=== PATIENT | male | born 1945 | race Caucasian/White ===

== ENCOUNTER → 2024-10-04 | Outpatient (CLI) | payer OTHER, SELFPAY ==
[2024-10-04 09:08] LABS: Collection Type, Urine Clean Catch
[2024-10-04 09:31] LABS: Basophils # (Auto) 0.1 Thou/mm3 (0.0-0.2); Basophils % (Auto) 1 % (0-2.5); Eosinophils # (Auto) 0.2 Thou/mm3 (0.0-0.5); Eosinophils % (Auto) 3 % (0-10); Hematocrit 39.1 % (41.0-53.0); Hemoglobin 12.4 g/dL (13.5-16.0); Immature Granulocytes % (Auto) 0 % (0-0); Immature Granulocytes Auto 0.01 Thou/mm3 (0.00-0.00); Lymphocytes # (Auto) 1.9 Thou/mm3 (1.0-4.8); Lymphocytes % (Auto) 29 % (10-50); Mean Corpuscular HGB Conc 31.7 g/dl (31.0-37.0); Mean Corpuscular Hemoglobin 25.7 pg (25.0-35.0); Mean Corpuscular Volume 81 fL (80-100); Monocytes # (Auto) 0.6 Thou/mm3 (0.0-0.8); Monocytes % (Auto) 8 % (0-12); Neutrophils % (Auto) 59 % (37-80); Nucleated Red Blood Cell % 0 /100 WBC (0); Platelet Count 148 Thou/mm3 (140-440); RDW Standard Deviation 45.3 fL (35.1-43.9); Red Blood Count 4.83 Miln/mm3 (4.50-5.90); White Blood Count 6.7 Thou/mm3 (3.8-10.6)
[2024-10-04 09:35] LABS: Bilirubin,Urine Negative (Negative); Blood,Urine Negative (Negative); Clarity,Urine Clear (Clear/Hazy); Color,Urine Yellow (Lt Yel-Yel); Creatinine,Random Urine 170 mg/dL (30-125); Glucose, Urine Negative (Negative); Ketones,Urine Negative (Negative); Leukocyte Esterase,Urine Negative (Negative); Nitrite,Urine Negative (Negative); Protein,Urine Trace (Neg - Trace); RBC,Urine 5 /hpf (0-3); Specific Gravity,Urine 1.032 (1.001-1.035); Squamous Epithelial Cell,Urine 1 /hpf (0-5); WBC,Urine 4 /hpf (0-5)
[2024-10-04 09:42] LABS: Alanine Aminotransferase 24 U/L (10-49); Albumin, Serum 3.8 gm/dL (3.4-4.8); Albumin/Globulin Ratio 1.8 (1.2-2.2); Alkaline Phosphatase 73 U/L (46-116); Anion Gap 8 (7-16); Aspartate Amino Transferase 22 U/L (0-34); BUN/Creatinine Ratio 21 Ratio (12-20); Bilirubin,Total 1.1 mg/dL (0.3-1.2); Blood Urea Nitrogen 15 mg/dL (9-23); Calcium 8.6 mg/dL (8.3-10.6); Calcium (Corrected) 8.8 mg/dL (8.5-10.1); Cardiac Risk Estimate 2.1 RATIO (4.0-6.7); Chloride 108 mMol/L (98-107); Cholesterol 107 mg/dL (132-200); Creatinine (Component) 0.7 mg/dL (0.6-1.3); Globulin 2.1 gm/dL (2.3-3.5); Glucose 120 mg/dL (74-106); HDL Cholesterol 52 mg/dL (40-60); LDL Cholesterol,Calculated 38 mg/dL (0-130); Osmolality,Calculated 288 (275-295); Potassium 4.2 mMol/L (3.4-5.1); Sodium 144 mMol/L (136-145); Total Protein 5.9 gm/dL (5.7-8.2); Triglycerides 86 mg/dL (30-150); eGFR > 60 See Note
[2024-10-04 11:19] LABS: Glucose Estimated Average 148 mg/dL (80-131); Hemoglobin A1C 6.8 % Hgb (4.8-6.0)
== END | disposition home or self-care (01) ==
LOC: COPL 08:11
PROVIDERS: PCP Nurse Practitioner Family; Referring Provider Nurse Practitioner Family; Visit Provider Nurse Practitioner Family
DX: E11.65 Type 2 diabetes mellitus with hyperglycemia (principal); E78.2 Mixed hyperlipidemia; I10 Essential (primary) hypertension; Z79.899 Other long term (current) drug therapy
CPT/HCPCS: 36415; 80053; 80061; 81001; 82570; 83036; 85025

== ENCOUNTER → 2024-12-17 | Outpatient (BNVA) | payer OTHER, SELFPAY | END | disposition home or self-care (01) | PROVIDERS: PCP Nurse Practitioner Family; Referring Provider Nurse Practitioner Family; Visit Provider Urology | DX: N40.1 Benign prostatic hyperplasia with lower urinary tract symptoms (principal); N13.8 Other obstructive and reflux uropathy; N52.9 Male erectile dysfunction, unspecified; Z80.42 Family history of malignant neoplasm of prostate; I10 Essential (primary) hypertension; E11.9 Type 2 diabetes mellitus without complications; I25.10 Atherosclerotic heart disease of native coronary artery without angina pectoris; E66.9 Obesity, unspecified; Z68.38 Body mass index [BMI] 38.0-38.9, adult; Z98.84 Bariatric surgery status; Z87.891 Personal history of nicotine dependence | CPT/HCPCS: 81003; 99212; G0463 ==

== ENCOUNTER → 2024-12-17 | Outpatient (CLI) | payer OTHER, SELFPAY ==
[2024-12-17 11:33] LABS: Prostate Specific Antigen 1.15 ng/mL (0-4.00)
== END | disposition home or self-care (01) ==
LOC: COPL 10:39
PROVIDERS: PCP Family Medicine; Referring Provider Urology; Visit Provider Urology
DX: Z12.5 Encounter for screening for malignant neoplasm of prostate (principal)
CPT/HCPCS: 36415; 84153

== ENCOUNTER → 2024-12-27 | Outpatient (CLI) | payer OTHER, SELFPAY ==
[2024-12-27 14:06] LABS: Collection Type, Urine Clean Catch
[2024-12-27 14:48] LABS: Basophils # (Auto) 0.1 Thou/mm3 (0.0-0.2); Basophils % (Auto) 1 % (0-2.5); Eosinophils # (Auto) 0.1 Thou/mm3 (0.0-0.5); Eosinophils % (Auto) 2 % (0-10); Hematocrit 39.2 % (41.0-53.0); Hemoglobin 13.3 g/dL (13.5-16.0); Immature Granulocytes % (Auto) 0 % (0-0); Immature Granulocytes Auto 0.03 Thou/mm3 (0.00-0.00); Lymphocytes # (Auto) 2.3 Thou/mm3 (1.0-4.8); Lymphocytes % (Auto) 27 % (10-50); Mean Corpuscular HGB Conc 33.9 g/dl (31.0-37.0); Mean Corpuscular Hemoglobin 28.1 pg (25.0-35.0); Mean Corpuscular Volume 83 fL (80-100); Monocytes # (Auto) 0.7 Thou/mm3 (0.0-0.8); Monocytes % (Auto) 9 % (0-12); Neutrophils # (Auto) 5.1 Thou/mm3 (1.8-7.7); Neutrophils % (Auto) 61 % (37-80); Nucleated Red Blood Cell % 0 /100 WBC (0); Platelet Count 172 Thou/mm3 (140-440); RDW Standard Deviation 48.9 fL (35.1-43.9); Red Blood Count 4.73 Miln/mm3 (4.50-5.90); White Blood Count 8.3 Thou/mm3 (3.8-10.6)
[2024-12-27 14:58] LABS: Glucose Estimated Average 143 mg/dL (80-131); Hemoglobin A1C 6.6 % Hgb (4.8-6.0)
[2024-12-27 15:04] LABS: Alanine Aminotransferase 19 U/L (10-49); Albumin, Serum 4.4 gm/dL (3.4-4.8); Alkaline Phosphatase 76 U/L (46-116); Anion Gap 10 (7-16); Aspartate Amino Transferase 23 U/L (0-34); BUN/Creatinine Ratio 27 Ratio (12-20); Bilirubin,Direct 0.4 mg/dL (0.0-0.3); Bilirubin,Total 1.1 mg/dL (0.3-1.2); Blood Urea Nitrogen 27 mg/dL (9-23); Calcium 9.2 mg/dL (8.3-10.6); Cardiac Risk Estimate 2.3 RATIO (4.0-6.7); Chloride 103 mMol/L (98-107); Cholesterol 117 mg/dL (132-200); Glucose 108 mg/dL (74-106); HDL Cholesterol 50 mg/dL (40-60); LDL Cholesterol,Calculated 43 mg/dL (0-130); Osmolality,Calculated 289 (275-295); Potassium 4.2 mMol/L (3.4-5.1); Sodium 142 mMol/L (136-145); Total Protein 6.7 gm/dL (5.7-8.2); Triglycerides 118 mg/dL (30-150); eGFR > 60 See Note
[2024-12-27 15:08] LABS: INR 1.1 (0.9-1.3); Partial Thromboplastin Time 26.7 Seconds (22.0-36.0); Prothrombin Time 11.6 Seconds (9.0-12.2)
[2024-12-27 16:21] LABS: Bilirubin,Urine Negative (Negative); Blood,Urine Negative (Negative); Clarity,Urine Clear (Clear/Hazy); Color,Urine Lt-Yellow (Lt Yel-Yel); Culture Indicated,Urine Not Indicated; Glucose, Urine Negative (Negative); Ketones,Urine Negative (Negative); Leukocyte Esterase,Urine Negative (Negative); Nitrite,Urine Negative (Negative); PH,Urine 5.5 (5.0-7.0); Protein,Urine Negative (Neg - Trace); RBC,Urine 2 /hpf (0-3); Specific Gravity,Urine 1.021 (1.001-1.035); Squamous Epithelial Cell,Urine < 1 /hpf (0-5); Urobilinogen,Urine Negative mg/dL (0.0-1.0); WBC,Urine 1 /hpf (0-5)
== END | disposition home or self-care (01) ==
LOC: COPL 13:41
PROVIDERS: PCP Nurse Practitioner Family; Referring Provider Nurse Practitioner Family; Visit Provider Nurse Practitioner Family
DX: I50.9 Heart failure, unspecified (principal); R06.09 Other forms of dyspnea; E11.65 Type 2 diabetes mellitus with hyperglycemia; Z79.899 Other long term (current) drug therapy; Z79.01 Long term (current) use of anticoagulants
CPT/HCPCS: 36415; 80048; 80061; 80076; 81001; 83036; 85025; 85610; 85730

== ENCOUNTER → 2025-02-03 | Outpatient (BNVA) | payer OTHER, SELFPAY | END | disposition home or self-care (01) | PROVIDERS: PCP Nurse Practitioner Family; Referring Provider Nurse Practitioner Family; Visit Provider Urology | DX: N40.1 Benign prostatic hyperplasia with lower urinary tract symptoms (principal); R39.12 Poor urinary stream; I10 Essential (primary) hypertension; E78.00 Pure hypercholesterolemia, unspecified; I25.10 Atherosclerotic heart disease of native coronary artery without angina pectoris; J44.9 Chronic obstructive pulmonary disease, unspecified; G47.30 Sleep apnea, unspecified; E11.9 Type 2 diabetes mellitus without complications; E66.9 Obesity, unspecified | CPT/HCPCS: 51741; 51798 ==

== ENCOUNTER 2025-06-01 10:04 | Emergency (ER) | payer OTHER, SELFPAY ==
[2025-06-01 10:31] VITALS: BP 104/68; PULSE 88; RESP 18; TEMP 36.8; O2SAT 95; BMI 37.3
--- NOTE | 2025-06-01 10:37 | XR_ITS ---
Shoulder bilateral, 6 views Technique: Shoulder AP internal rotation, AP external rotation, Y view each shoulder total 6 views Exam date and time : June 01, 2025, 1141 hours INDICATIONS: Patient fell 3 weeks ago with injury of both shoulders, bilateral shoulder pain. FINDINGS: No right or left shoulder fracture or dislocation Advanced osteoarthritis left glenohumeral joint No AC joint separation IMPRESSION: No shoulder fractures or dislocations
--- NOTE | 2025-06-01 10:37 | XR_ITS ---
Examination: CT cervical spine without contrast 2-D sagittal reconstructions 2-D coronal reconstructions 3-D reconstructions. Exam date and time: June 01, 2025, 10:48 a.m., comparison June 17, 2022 INDICATIONS: Patient fell 3 weeks ago with injury to the neck, neck pain CTDI:vol (mGy) 20.1 DLP: (mGycm) 468 Technique: Multiple 2 mm axial sections of the cervical spine have been obtained. The coronal and sagittal reconstructions have been obtained. 3-D reconstructions have been obtained. Low dose protocols were performed. One or more of the following dose reduction techniques were used; automated exposure control, adjustment of the mA and/or KV according to patient size, use of iterative reconstruction technique. Findings: Axial sections demonstrate intact base of the skull. C1 exhibit satisfactory relationship to the odontoid. No acute cervical vertebral body fracture seen. Alignment posterior spinous processes satisfactory. Moderate degenerative disc disease C3-C4, C4-C5, C5-C6 Impression: No acute cervical fracture.
--- NOTE | 2025-06-01 10:37 | XR_ITS ---
Examination: CT pelvis without intravenous contrast. 2-D sagittal and coronal reconstructions. Date and time of exam: June 01, 2025, 10:48 a.m. INDICATIONS: Patient fell 3 weeks ago with injury to the pelvis, pelvic pain CTDI: vol (mGy) : 11.2 DLP: (mGycm) : 454 Technique: Multiple 3 mm axial sections of the pelvis have been obtained with the 64 slice high resolution scanner. 2-D sagittal and coronal reconstructions. Low dose protocols were performed. One or more of the following dose reduction techniques were used; automated exposure control, adjustment of the mA and/or KV according to patient size, use of iterative reconstruction technique. Findings: No bowel obstruction No pelvic hematoma Normal seminal vesicles Urinary bladder intact Mild prostatomegaly Severe osteopenia Abundant stool in the rectum Sacral segments iliac bones and acetabular regions intact Anterior rami intact No hip fractures Moderate bilateral hip osteoarthritis No compression L4-L5 Moderate disc narrowing posteriorly L5-S1 Satisfactory alignment sacral and coccygeal segments IMPRESSION: No acute pelvic fracture
--- NOTE | 2025-06-01 13:58 | PD.EDFALL ---
ED Fall Injury RME/HPI General Chief Complaint: Extremity Injury, Upper Stated Complaint: SORENESS IN SHOULDERS/HIPS, FALLING Time Seen by Provider: 06/01/25 10:35 Arrival date/time: 06/01/25 10:04 79-year-old male presents to the emergency department today stating he had a ground-level fall a couple of weeks ago since that has been having pain in his right shoulder hips and neck Limitations: no limitations Related Data Home Medications ?Medication ?Instructions ?Recorded ?Confirmed aspirin 81 mg chewable tablet 81 mg PO DAILY ##0 01/24/10 02/03/25 furosemide 40 mg tablet 20 mg PO DAILY ##0 01/24/10 02/03/25 gabapentin 600 mg tablet 600 mg PO BID ##0 12/04/12 02/03/25 (Neurontin) clopidogrel 75 mg tablet 75 mg PO QDAY 04/26/21 02/03/25 escitalopram oxalate 10 mg tablet 10 mg PO QDAY 04/26/21 02/03/25 spironolactone 25 mg tablet 25 mg PO QDAY 04/26/21 02/03/25 lovastatin 10 mg tablet 10 mg PO QDAY 12/18/21 02/03/25 calcium 250 mg (as 1 tab PO DAILY 07/23/22 02/03/25 citrate)-vitamin D3 5 mcg (200 unit) tablet (Citracal Regular) carvedilol 12.5 mg tablet 12.5 mg PO BID 07/23/22 02/03/25 mecobalamin (vitamin B12) 1,000 2,500 mcg PO QDAY 07/23/22 02/03/25 mcg chewable tablet (B12 Active) ulscczyb-dg-fypla 300 mcg-K 60 1 tab PO QDAY 07/23/22 02/03/25 mcg-lycop 600 mcg-lutein 300 mcg tablet (Centrum Silver Men) celecoxib 200 mg capsule (Celebrex) 200 mg PO .prn 12/18/23 02/03/25 fexofenadine 180 mg tablet 180 mg PO Q24H 12/18/23 02/03/25 (Sanjuanita Hives) lisinopril 5 mg tablet 5 mg PO QDAY 12/18/23 02/03/25 Previous Rx's ?Medication ?Instructions ?Recorded acetaminophen 300 mg-codeine 30 mg 1 tab PO Q4H PRN pain #30 tabs 07/25/22 tablet cephalexin 500 mg capsule 500 mg PO BID #3 caps 07/25/22 Allergies Allergy/AdvReac Type Severity Reaction Status Date / Time acetaminophen (From Vicodin) Allergy Severe Vomiting/DI Verified 06/01/25 10:09 ARRHEA hydrocodone AdvReac Unknown VOMITING/DI Verified 06/01/25 10:09 ARRHEA Review of Systems Review of Systems Systems Reviewed: All systems reviewed, normal except as documented Constitutional Constitutional: Reports system reviewed and no additional complaints, except as documented, Denies fever(s) and Denies headache(s) Eyes Eyes: Reports system reviewed and no additional complaints, except as documented and Denies blurry vision ENT Ears, Nose, Mouth, and Throat: Reports system reviewed and no additional complaints, except as documented, Denies headache(s), Denies nasal congestion, Denies nasal discharge and Reports neck pain Cardiovascular Cardiovascular: Reports system reviewed and no additional complaints, except as documented, Denies chest pain and Denies dyspnea Respiratory Respiratory: Reports system reviewed and no additional complaints, except as documented, Denies chest congestion, Denies cough and Denies dyspnea Gastrointestinal Gastrointestinal: Reports system reviewed and no additional complaints, except as documented and Denies abdominal pain Musculoskeletal Musculoskeletal: Reports system reviewed and no additional complaints, except as documented, Reports arthralgias (Shoulder pain right), Denies back pain, Reports neck pain, Denies numbness, Reports stiffness and Denies tingling Integumentary/Breasts Skin/Breast: Reports system reviewed and no additional complaints, except as documented and Denies rash Neurologic Neurologic: Reports system reviewed and no additional complaints, except as documented, Reports as per HPI, Denies headache(s), Denies numbness and Denies tingling Past Medical History Past Medical History NEUROLOGIC: Positive Neurological Disorders; Negative Cerebrovascular Accident, Transient Ischemic Attacks (TIA), Dementia, Alzheimer's Disease, Parkinson's Disease, Brain Tumor, Meningitis, Seizures, Epilepsy, Multiple Sclerosis, Cerebral Palsy, Amyotrophic Lateral Sclerosis (ALS/Siena Gehrig's), Guillain-[place] Syndrome, Spina Bifida, Paralysis, Peripheral Neuropathy, Garsia's Palsy, Subdural Hematoma, Migraine, Head Trauma, Spinal Cord Injury or Traumatic Brain Injury CARDIAC: Positive Cardiac Disorders, Myocardial Infarction (07/07/2005 in [place]), Coronary Artery Disease (4 stents from [id number] in [facility] dr johnson, [facility] with dr soto), Peripheral Vascular Disease, Hypercholesterolemia, Congestive Heart Failure and Hypertension; Negative Cardiac Arrhythmia, Atrial Fibrillation, Angina, Heart Murmur, Atherosclerotic Heart Disease, Aneurysm, Congenital Heart Disease, Valvular Heart Disease, Rheumatic Fever, Cardiomyopathy, Edema, Pericarditis, Cellulitis, Deep Vein Thrombosis, Hypotension or Varicose Veins RESPIRATORY: Positive Chronic Obstructive Pulmonary Disease (COPD) and Sleep Apnea (cpap at home, no oxygen needed.); Negative Asthma, Bronchitis, Emphysema, Pneumonia, Pulmonary Fibrosis, Cystic Fibrosis, Tuberculosis, Pulmonary Embolism or Pulmonary Edema GASTROINTESTINAL: Positive Gastrointestinal Disorders and Obesity; Negative Hepatitis, Cirrhosis, Pancreatitis, Celiac Disease, Gall Bladder Disease, Gastrointestinal Bleed, Esophageal Varices, Frank's Esophagus, Colitis, Ulcerative Colitis, Diverticulitis, Diverticulosis, Ulcer, Colorectal Cancer, Irritable Bowel, Crohn's Disease, Obstructive Bowel, Hiatal Hernia, Hemorrhoids or Gastroesophageal Reflux Disease GENITOURINARY: Negative Genitourinary Disorders, Renal Disease, Kidney Stones, Polycystic Kidney Disease, Neurogenic Bladder, Inguinal Hernia, Dialysis, Prostate Cancer or Benign Prostatic Hyperplasia REPRODUCTIVE: Negative Genital Herpes, Gonorrhea, Syphilis or Testicular Cancer MUSCULOSKELETAL: Negative Musculoskeletal Disorders, Muscular Dystrophy, Myasthenia Gravis, Marfan's Syndrome, Bone Cancer, Arthritis, Rheumatoid Arthritis, Osteoporosis, Degenerative Disk Disease, Gout, Scoliosis, Carpal Tunnel Syndrome, Fibromyalgia, Fractures, Degenerative Joint Disease, Osteomyelitis or Poliovirus ENT: Positive Cataracts (bilateral) and Deafness (Has bilat hearing aids); Negative Glaucoma, Blind, Retinal Detachment, Macular Degeneration, Ear Infection, Head Trauma or Eye Prosthesis ENDOCRINE: Positive Endocrine Disorders and Diabetes Mellitus Type 2 (STOP MED); Negative Diabetes Mellitus Type 1, Hypoglycemia, Sandeep's Syndrome, Macoupin's Disease, Hyperthyroidism, Hypothyroidism, Parathyroid Disease, Pituitary Disease, Systemic Lupus Erythematosus, Syndrome of Inappropriate Antidiuretic Hormone (SIADH), Adrenal Disease or Graves' Disease HEMATOLOGIC: Negative Blood Disorders, Anemia, Leukemia, Hemophilia, Thalassemia, Sickle Cell Disease or Clotting Problems PSYCHO/SOCIAL: Positive Eating Disorder (going to have gastric bypass surgery on 12/25/2021.); Negative Psychiatric Problems, Schizophrenia, Recreational Drug Use, Bipolar Disorder, Depression, Anxiety, Behavior Problems, Self-Mutilation, Attention Deficit Disorder, Attention Deficit Hyperactivity Disorder, Depression or Post Traumatic Stress Disorder OTHER HISTORY: Positive Hospitalization ([facility]), Shingles (2020), Chicken Pox, Measles and Mumps; Negative Autoimmune Disease, Down Syndrome, Autism, Developmental Delay, Falls, Blood Transfusions, Anesthesia Reactions, Organ Transplant, Chemotherapy, Radiation Therapy, Hyperbaric Therapy, MRSA, VRSA, Vancomycin-Resistant Enterococci, Human Immunodeficiency Virus (HIV), Rubella ([place]ov[place] Measles), Pertussis, Clostridium Difficile, Cancer, Colorectal Cancer, Lung Cancer, Prostate Cancer or Testicular Cancer Family History FAMILY HISTORY: Positive Family Cardiac Disorders (brother had open heart.), Family Cancer (FATHER (PROSTATE)) and Family Surgery (FATHER,BROTHER); Negative Family Psychiatric Problems, Family Respiratory Disorders, Family Gastrointestinal Problems or Family Anesthesia Reaction Surgical History SURGICAL: Positive Cardiac Surgery, Open Heart Surgery, Coronary Artery Bypass Graft, Valve Replacement (double heart valve replacement), Coronary Stent ([facility], [facility], does not recall the years. X4 STENTS), Cardiac Catheterization, Pacemaker (LEFT CHEST), Angiogram, Eye Surgery, Abdominal Surgery, Gastric Bypass Surgery (01/02) and Vasectomy; Negative Vascular Surgery, Auto Implanted Cardiovert Defib, Carotid Endarterectomy, Endocrine Surgery, Thyroidectomy, Ear Surgery, Tympanostomy Tube, Nose Surgery, Oral Surgery, Tonsillectomy, Adenoidectomy, Cochlear Implant, Corneal Transplant, Throat Surgery, Tracheostomy, Gastrostomy, Bowel Surgery, Nephrectomy, Transurethral Resection, Joint Replacement, Amputation, Open Reduction Internal Fixation, Arthroscopy, Neurologic Surgery, Brain Shunt or Organ Transplant Social History SMOKING STATUS: Former smoker ED Exam General Limitations: Present no limitations General appearance: Present alert and in no apparent distress Head Head exam: Present atraumatic, normocephalic and normal inspection Eye Eye exam: Present normal appearance, PERRL and EOMI; Absent conjunctival injection ENT ENT exam: Present normal exam, normal oropharynx and mucous membranes moist Neck Neck exam: Present normal inspection, full ROM and trachea midline Chest Chest inspection: Present normal inspection and symmetric chest wall rise Respiratory Respiratory exam: Present normal lung sounds bilaterally Cardiovascular Cardiovascular exam: Present regular rate, normal rhythm and normal heart sounds Abdominal Exam Abdominal exam: Present soft and normal bowel sounds Extremities Exam Extremities exam: Present normal inspection, full ROM and tenderness (Right shoulder) Back Exam Back exam: Present normal inspection and full ROM Back 1 view image:  1. Pain Neurological Exam Neurological exam: Present alert, oriented X3 and CN II-XII intact Psychiatric Psychiatric exam: Present normal affect and normal mood Skin Skin exam: Present warm, dry, intact and normal color Course Quality Measures none Orders Category Date Time Status CT cervical spine wo con Stat Exams 06/01/25 10:[address] pelvis wo con Stat Exams 06/01/25 10:37 Completed XR shoulder BI min 2V Stat Exams 06/01/25 10:37 Completed Vital Signs Vital signs: Vital Signs Temperature 98.3 F 06/01/25 10:31 Pulse Rate 88 06/01/25 10:31 Respiratory Rate 18 06/01/25 10:31 Blood Pressure 104/68 06/01/25 10:31 Pulse Oximetry (%) 95 06/01/25 10:31 Oxygen Delivery Method Room Air 06/01/25 10:31 Fall MDM Narrative MDM Narrative:: 79-year-old male presents to the emergency department today stating he had a ground-level fall a couple of weeks ago since that has been having pain in his right shoulder hips and neck Clinically patient well-appearing does not appear look toxic no acute distress Imaging obtained no acute emergent findings noted Head and neck are atraumatic patient is no bruising or swelling Patient walks with steady gait Patient discharged home in no distress to follow-up with primary care doctor in the next 24 to 48 hours and for any worsening symptoms to return to the ER immediately Patient data External records reviewed:: [facility] previous records Clinical information provided by:: patient Social determinants that could affect healthcare access:: none Patient has the following chronic illnesses:: See history How is presenting disease/condition affected by chronic disease/condition?: uneffected by Evaluation data The following diagnostics were reviewed and interpreted by me:: radiology exam(s) Lab and/or radiology exams considered but not ordered:: Radiology obtained Interpretation Summary: Reviewed by me Medications / Prescriptions Medications or Prescriptions considered but not ordered:: Given Medication administrations:: Given Consultations Consultation(s) initiated? (list below): No Diagnosis Fall Differential Diagnosis: other (Cervical radiculopathy, hip pain, osteoarthritis, shoulder pain) Most likely diagnosis given after review of the tests above:: Cervical radiculopathy, hip pain, osteoarthritis, shoulder pain Admission Indicated Admission indicated?: not indicated Admission Request Was there a request for admission?: No Disposition Plan Disposition Plan: Discharge Discharge Attestation Discharge Attestation: The patient and all family members were given an opportunity to ask questions and understood the discharge instructions. Discharge instructions specifically effects, indications for sooner follow up or return to the emergency department, and the expected course of current diagnosis. Patient condition: Stable Discharge Plan Plan Patient Disposition: HOME (Self Care) Discharge Disposition comment: Stable Prescriptions/Referrals Prescriptions/Med Rec: No Action celecoxib [Celebrex] 200 mg capsule 200 mg PO .prn fexofenadine [Sanjuanita Hives] 180 mg tablet 180 mg PO Q24H lisinopril 5 mg tablet 5 mg PO QDAY furosemide 40 MG tablet 20 mg PO DAILY Qty: 0 aspirin 81 MG tablet,chewable 81 mg PO DAILY Qty: 0 gabapentin [Neurontin] 600 MG tablet 600 mg PO BID Qty: 0 lovastatin 10 mg Tablet 10 mg PO QDAY spironolactone 25 mg tablet 25 mg PO QDAY escitalopram oxalate 10 mg tablet 10 mg PO QDAY clopidogrel 75 mg tablet 75 mg PO QDAY carvedilol 12.5 mg Tablet 12.5 mg PO BID Rx Instructions: must administer with a meal/food calcium citrate-vitamin D3 [Citracal Regular] 250 mg-5 mcg (200 unit) tablet 1 tab PO DAILY Patient Comments: take two tablets by mouth twice a day Centrum Silver Men 300-600-300 mcg Tablet 1 tab PO QDAY mecobalamin (vitamin B12) [B12 Active] 1,000 mcg Tablet,Chewable 2,500 mcg PO QDAY acetaminophen-codeine 300-30 mg tablet 1 tab PO Q4H PRN (Reason: pain) Qty: 30 0RF cephalexin 500 mg capsule 500 mg PO BID Qty: 3 0RF Rx Instructions: Begin first dose today Referrals: Angela Thompson NP [Primary Care Provider] - 06/02/25 Problem List Clinical Impression: Fall, Acute pain of right shoulder Patient/Caregiver Discharge Instructions Education Materials: ED Arthralgia Additional Instructions: Please follow up with your primary care doctor in the next 24-48hrs for any worsening symptoms return here immediately Print Language: Faroese Stand Alone Forms: [facility] Award Info., Patient Portal Info Letter PA/WET ROLLER Supervising Physician PA/FRED Supervising Physician: Dr. barroso
== END 2025-06-01 14:28 | disposition home or self-care (01) ==
PROVIDERS: Emergency Provider Family Medicine; PCP Nurse Practitioner Family
DX: M25.511 Pain in right shoulder (principal)
CPT/HCPCS: 72125; 72192; 73030; 99282

== ENCOUNTER → 2025-06-20 | Outpatient (BNVA) | payer OTHER, SELFPAY | END | disposition home or self-care (01) | PROVIDERS: PCP Nurse Practitioner Family; Referring Provider Nurse Practitioner Family; Visit Provider Urology | DX: N40.0 Benign prostatic hyperplasia without lower urinary tract symptoms (principal); C34.90 Malignant neoplasm of unspecified part of unspecified bronchus or lung; C78.7 Secondary malignant neoplasm of liver and intrahepatic bile duct; E11.9 Type 2 diabetes mellitus without complications; I10 Essential (primary) hypertension; E66.9 Obesity, unspecified; I25.10 Atherosclerotic heart disease of native coronary artery without angina pectoris; Z87.891 Personal history of nicotine dependence; Z98.84 Bariatric surgery status | CPT/HCPCS: 81003; 99212; G0463 ==